=== PATIENT | male | born 1980 | race Caucasian/White ===

== ENCOUNTER 2023-02-12 08:05 | Outpatient (CLI) | payer OTHER, SELFPAY | END 2023-02-12 08:06 | disposition home or self-care (01) | LOC: NFLDREF 02-18 08:01 | PROVIDERS: PCP Family Medicine; Referring Provider Family Medicine; Visit Provider Family Medicine | DX: Z00.00 Encounter for general adult medical examination without abnormal findings (principal); E78.5 Hyperlipidemia, unspecified; R79.89 Other specified abnormal findings of blood chemistry; Z80.42 Family history of malignant neoplasm of prostate | CPT/HCPCS: 80053; 80061; 82627; 84153; 84270; 84402; 84403; 84443; 85025 ==

== ENCOUNTER 2023-03-16 15:33 | Outpatient (CLI) | payer OTHER, SELFPAY ==
--- NOTE | 2023-03-16 16:00 | CRLHL7_ITS ---
For Patients: As a result of the Century Cures Act, medical imaging exams and procedure reports are released immediately into your electronic medical record. You may view this report before your referring provider. If you have questions, please contact your health care provider. INDICATION: Elevated LFTs. COMPARISON: None available. TECHNIQUE: Ultrasound examination of the right upper quadrant was performed. FINDINGS: The gallbladder is normal in appearance with no sign of cholelithiasis or acute cholecystitis. A sonographic García sign is not present, with no pain over the gallbladder during ultrasound examination. The common bile duct is normal in caliber at 5 mm. The pancreatic head and body were examined, and these are normal in appearance. The abdominal aorta and visualized portions of the inferior vena cava are normal in appearance. The liver shows no sign of mass or contour abnormality, and there is no sign of ascites. The liver is echogenic and difficult to penetrate consistent with fatty infiltration. The right kidney is unremarkable. IMPRESSION: Fatty infiltration of the liver. No other abnormality seen on ultrasound of the right upper quadrant. Dictated by Bandar nAn MD @ 03/17/2023 8:59:06 AM (Electronically Signed)
== END 2023-03-16 15:34 | disposition home or self-care (01) ==
LOC: US 15:35
PROVIDERS: PCP Family Medicine; Visit Provider Family Medicine
DX: R79.89 Other specified abnormal findings of blood chemistry (principal); K76.0 Fatty (change of) liver, not elsewhere classified
CPT/HCPCS: 76705

== ENCOUNTER 2023-09-28 18:59 | Outpatient (CLI) | payer BC, SELFPAY | END 2023-09-28 19:00 | disposition home or self-care (01) | PROVIDERS: PCP Family Medicine; Visit Provider Family Medicine | DX: R79.89 Other specified abnormal findings of blood chemistry (principal); R53.83 Other fatigue | CPT/HCPCS: 80076; 84403; 84443; 86140 ==

== ENCOUNTER 2024-08-05 07:48 | Outpatient (CLI) | payer BC, SELFPAY | END 2024-08-05 07:49 | disposition home or self-care (01) | LOC: NFLDREF 08-12 02:36 | PROVIDERS: PCP Family Medicine; Referring Provider Family Medicine; Visit Provider Family Medicine | DX: E78.5 Hyperlipidemia, unspecified (principal); R79.89 Other specified abnormal findings of blood chemistry; Z80.42 Family history of malignant neoplasm of prostate; Z12.5 Encounter for screening for malignant neoplasm of prostate | CPT/HCPCS: 80061; 80076; 84270; 84402; 84403; G0103 ==